=== PATIENT | male | born 1985 | race Caucasian/White ===

== ENCOUNTER 2024-12-07 17:41 | Emergency (ER) | payer BC, SELFPAY ==
[2024-12-07 17:53] VITALS: BP 132/86
[2024-12-07] MEDS: TOBREX 0.3% EYE DROPS 1 DROP OPHTH (19:12)
--- NOTE | 2024-12-07 23:15 | ED.GENMED ---
History of Present Illness
General
Chief Complaint: Eye Problems
Source: patient
Exam Limitations: none
Time Seen by Provider: 12/07/24 18:20
Nursing documentation reviewed up to this point in time: agreed with
History of Present Illness
History of Present Illness:
Patient to ED with complaint of fb sensation to left eye. States he was working on his house and felt something fly into his left eye - he feels iFB is wood. Brought self to ED for eval
Past History
Past History
ED Past Medical History: None
Review of Systems
Review of Systems
Allergies reviewed?: Yes
All Other Systems: ROS reviewed and negative except as documented in HPI and ROS
Constitutional: Reports no symptoms
EENT: Reports other (left eye fb sensation)
Musculoskeletal: Reports no symptoms
Skin: Reports no symptoms
Neurological: Reports no symptoms
Psychiatric: Reports no symptoms
Phy Exam
General Physical Exam
General Presentation: moderate distress
General age: appears stated age
General Skin: warm and dry
General Habitus: normal
General Mental: alert
Eye Exam
Eye Exam: PERRL, EOMI, cornea clear, globe normal and other (Lids everted, swept with qtip. SMall piece of suspected wood or plaster removed from under left upper lid. No evidence of corneal abrasion, no corneal FB)
Conjunctival Changes: left: watery discharge
Type of Exam: slit lamp, simple and fluorescein
Musculoskeletal Exam
Musculoskeletal Exam: full ROM and neuro vasc intact
Skin Exam
Skin Exam: normal color, warm/dry and no rash
Psychiatric Exam
Psychiatric Exam: normal mood/affect
Course
Orders/Labs/Results
Orders:
Orders
12/07/24 18:22
Fluorescein Sodium [Ful-Myranda] 1 mg .ROUTE .STK-MED ONE
Tetracaine HCl [Tetracaine 0.5% Ophthalmic Solution] 1 drop .ROUTE .STK-MED ONE
12/07/24 18:49
Tobramycin 0.3% [Tobrex 0.3% Eye Drops] See Dose Instructions OPHTH NOW STA
Vital Signs
Initial and Last Documented VS:
Initial Vital Signs
Temp Pulse Resp BP Pulse Ox
98 F 90 16 132/86 98
12/07/24 17:53 12/07/24 17:53 12/07/24 17:53 12/07/24 17:53 12/07/24 17:53
Last Documented Vital Signs
Temp Pulse Resp BP Pulse Ox
98 F 90 16 132/86 98
12/07/24 17:53 12/07/24 17:53 12/07/24 17:53 12/07/24 17:53 12/07/24 17:53
*Critical Care Note
Total Time (30-74mins, 75-104mins- exclusive of procedures): Not Applicable
Update Note
Update Note:
SMall piece of wood or plaster removed using qtip from under left upperlid. No evidence of corneal abrasion on staining howevere will cover with antibiotic drops. He is discharged home and will follow up with ophthalmology given instructions on
s/s to return to ED and he is agreeable to plan.
ED Attending Note
-
Portions of this chart may have been created with voice recognition software.� Occasional wrong word or��sound alike� substitutions may have occurred due to the inherent limitations of voice recognition software.
Discharge Plan
Departure
Patient Disposition: Home (Routine Discharge)
Date of Disposition: 12/07/24
Time of Disposition: 18:49
Patient with high blood pressure during this ER visit?: No
Condition: Good
Covid-19: Not Applicable
Discharge Problem:
Eye foreign bodies
Instructions: How to Use Eye Drops, Foreign Body in Eye (DC), Ibuprofen
Prescriptions:
New
tobramycin 0.3 % drops
1 drp ophthalmic (eye) Q4HWA Qty: 5 0RF
No Action
colchicine 0.6 mg Tablet
0.6 mg PO BID Qty: 60 0RF
acetaminophen 325 mg Tablet
650 mg PO Q4HPRN PRN (Reason: mild pain) Qty: 0 0RF
pantoprazole 40 mg Tablet,Delayed Release (Dr/Ec)
40 mg PO DAILY Qty: 30 0RF
ibuprofen 600 mg Tablet
600 mg PO TID Qty: 0 0RF
Referrals:
Leelee Banuelos DO [Family Provider] -
Diana Lazcano MD [Active] - Follow up in 2-3 days
Interventions
Interventions:
*Risk Screen - Suicide Last Done: 12/07/24 17:53
*General Assessment Last Done: 12/07/24 19:16
*Neglect/Abuse Screening Last Done: 12/07/24 17:53
*ED- Fall Risk Assessment Last Done: 12/07/24 19:16
*ED COVID-19 Vaccine History Last Done: 12/07/24 19:16
*Nursing Disposition Last Done: 12/07/24 19:19
Discharge Date and Time
Discharge Date/Time: 12/07/24 19:20
Print Language: SLOVENIAN
== END 2024-12-07 19:20 | disposition home or self-care (01) ==
LOC: EMR 17:41
PROVIDERS: EMERGENCY PHYSICIAN Emergency Medicine; FAMILY PHYSICIAN Family Medicine
DX: T15.92XA Foreign body on external eye, part unspecified, left eye, initial encounter (principal); S00.252A Superficial foreign body of left eyelid and periocular area, initial encounter; W44.8XXA Other foreign body entering into or through a natural orifice, initial encounter; Y93.89 Activity, other specified; E78.5 Hyperlipidemia, unspecified
CPT/HCPCS: 99283